=== PATIENT | female | born 2000 | race Caucasian/White ===

== ENCOUNTER 2019-06-30 20:29 | Emergency (ER) | payer BC ==
[2019-06-30 21:11] VITALS: BP 117/66
[2019-06-30] MEDS ORDERED: predniSONE TAB* 20 MG PO ONE (21:22)
[2019-06-30] MEDS ORDERED: Amoxicillin PO (*) 250 MG CAP PO ONE (21:23)
[2019-06-30] MEDS ORDERED: Amoxicillin PO (*) 500 MG CAP PO ONE (21:23)
--- NOTE | 2019-06-30 21:24 | UC ---
Respiratory Complaint HPI - HPI Summary HPI Summary: 18 yo female has been ill >10 days with nasal congestion/facial pressure/post nasal drip and cough no fever or chills low energy today gagging no trouble swallowing no severe sore throat - History of Current Complaint Chief Complaint: UCGeneralIllness Stated Complaint: COUGH Time Seen by Provider: 06/30/19 21:15 Hx Obtained From: Patient Hx Last Menstrual Period: 06/14/19 Onset/Duration: Gradual Onset, Lasting Days, Lasting Weeks Timing: Constant Severity Initially: Mild Severity Currently: Moderate Pain Intensity: 0 Pain Scale Used: 0-10 Numeric Character: Cough: Nonproductive Aggravating Factors: Nothing Associated Signs And Symptoms: Positive: URI, Nasal Congestion, Hoarseness, Sinus Discomfort - Allergies/Home Medications Allergies/Adverse Reactions: Allergies Allergy/AdvReac Type Severity Reaction Status Date / Time No Known Allergies Allergy Verified 06/30/19 21:12 Home Medications: Home Medications Guaifen/Phenyleph/Acetaminophn [Mucinex Sinus-Max Severe Cplt] 1 tab PO ONCE [History Confirmed 06/30/19] Norgestimate-Ethinyl Estradiol [Ortho Tri-Cyclen 28 Tablet] 1 tab PO DAILY 06/30 [History Confirmed 06/30/19] PMH/Surg Hx/FS Hx/Imm Hx Previously Healthy: Yes - Surgical History Surgical History: None - Family History Known Family History: Negative: Cardiac Disease - Social History Alcohol Use: Occasionally Substance Use Type: None Smoking Status (MU): Never Smoked Tobacco Review of Systems All Other Systems Reviewed And Are Negative: Yes Constitutional: Positive: Fatigue Skin: Positive: Negative Eyes: Positive: Negative ENT: Positive: Nasal Discharge, Sinus Congestion, Sinus Pain/Tenderness Respiratory: Positive: Cough Cardiovascular: Positive: Negative Gastrointestinal: Positive: Negative Genitourinary: Positive: Negative Motor: Positive: Negative Neurovascular: Positive: Negative Musculoskeletal: Positive: Negative Neurological: Positive: Negative Psychological: Positive: Negative Physical Exam Triage Information Reviewed: Yes Appearance: Well-Appearing, No Pain Distress, Well-Nourished Vital Signs: Initial Vital Signs Temp 97.7 F 06/30/19 21:07 Pulse 85 06/30/19 21:07 Resp 16 06/30/19 21:07 BP 117/66 06/30/19 21:07 Pulse Ox 100 06/30/19 21:07 Vital Signs Reviewed: Yes Eyes: Positive: Conjunctiva Clear ENT: Positive: Hearing grossly normal, Nasal congestion, Nasal drainage, Hoarse voice, Sinus tenderness, Uvula midline, Other - uvular edema( mild). Negative: Tonsillar swelling, Tonsillar exudate, Trismus, Muffled voice Neck: Positive: Supple, Nontender, No Lymphadenopathy Respiratory: Positive: Lungs clear, Normal breath sounds, No respiratory distress, No accessory muscle use Cardiovascular: Positive: RRR, No Murmur, Pulses Normal Abdominal Exam: Normal Musculoskeletal: Positive: ROM Intact, No Edema Neurological: Positive: Alert Psychological Exam: Normal Skin Exam: Normal Respiratory Course/Dx - Differential Dx/Diagnosis Provider Diagnosis: Acute sinusitis, Uvular edema Discharge ED - Sign-Out/Discharge Documenting (check all that apply): Patient Departure All imaging exams completed and their final reports reviewed: No Studies - Discharge Plan Condition: Stable Disposition: HOME Prescriptions: Amoxicillin PO (*) [Amoxicillin 875 MG (*)] 875 mg PO BID #14 tab predniSONE [Deltasone 20 MG TAB] 40 mg PO DAILY #8 tab Patient Education Materials: Sinusitis (ED) Referrals: No Primary Care Phys,NOPCP [Primary Care Provider] - Additional Instructions: warm facial compresses saline nasal spray (OTC) 2 sprays each nostril twice daily until better recheck for new or worsening symptoms recheck next week if not completely better - Billing Disposition and Condition Condition: STABLE Disposition: Home
== END 2019-06-30 21:30 | disposition home or self-care (01) ==
LOC: UCCORT 20:29
DX: J01.90 Acute sinusitis, unspecified (principal); K13.79 Other lesions of oral mucosa
CPT/HCPCS: 99202; A9270-GY; G0463; J7512